=== PATIENT | male | born 1965 | race Caucasian/White ===

== ENCOUNTER 2025-04-05 16:01 | Outpatient (CLI) | payer BC ==
--- NOTE | 2025-04-05 17:27 | RADIOLOGY REPORT ---
CLINICAL INDICATION: ACUTE PAIN OF LEFT SHOULDER TECHNIQUE: DI SHOULDER, COMPLETE (MIN 2 VWS) Comparison: None FINDINGS/IMPRESSION: : Age indeterminate fractures of the left posterior 7th and 8th ribs. No shoulder fracture. No glenohumeral joint space dislocation.
== END 2025-04-05 23:59 | disposition home or self-care (01) ==
LOC: RAD 16:01
PROVIDERS: ATTEND Internal Medicine
DX: M80.0AXA Age-related osteoporosis with current pathological fracture, other site, initial encounter for fracture (principal); M25.512 Pain in left shoulder
CPT/HCPCS: 73030

== ENCOUNTER 2025-05-16 15:26 | Outpatient (CLI) | payer BC ==
--- NOTE | 2025-05-16 18:01 | RADIOLOGY REPORT ---
EXAM: CT CT LOWER EXTREMITY INDICATION: PRESENCE OF LEFT ARTIFICIAL KNEE JOINT TECHNIQUE: Axial images of left lower extremity have been obtained along with coronal and sagittal reformatted images. All CT scans at this facility use dose modulation, iterative reconstruction, and/or weight based dosing when appropriate to reduce radiation dose to as low as reasonably achievable. COMPARISON: None FINDINGS: BONES: No CT evidence of an acute fracture or aggressive osseous lesion. left total knee arthroplasty. No osseous lucency along the hardware bone interfaces. No perihardware fracture. MUSCLES: No abnormal attenuation. JOINT SPACES: No joint effusion. TENDONS/LIGAMENTS: Intact. OTHER: Vascular calcifications. IMPRESSION: 1. Right total knee arthroplasty without radiographic evidence of interval complication 2. Normal appearance of the polyethylene spacer. 3. Question significant internal rotation of the tibial component correlate with clinical patellar maltracking. 4. Small knee joint effusion possible synovitis.
== END 2025-05-16 23:59 | disposition home or self-care (01) ==
LOC: RAD 15:26
PROVIDERS: ATTEND Physician Assistant
DX: Z96.652 Presence of left artificial knee joint (principal)
CPT/HCPCS: 73700

== ENCOUNTER 2025-05-23 12:28 | Outpatient (CLI) | payer BC ==
[2025-05-23 12:58] LABS: MEAN PLATELET VOLUME 8.5 FL (7.4-10.4); RED CELL DISTRIBUTION WIDTH 13.8 % (11.5-14.5)
== END 2025-05-23 23:59 | disposition home or self-care (01) ==
LOC: RAD 12:28
PROVIDERS: ATTEND Orthopaedic Surgery
DX: Z01.812 Encounter for preprocedural laboratory examination (principal); Z96.652 Presence of left artificial knee joint
CPT/HCPCS: 36415; 85025; 85651; 86140

== ENCOUNTER 2025-07-04 11:01 | Outpatient (CLI) | payer BC ==
[2025-07-04 11:28] LABS: MEAN PLATELET VOLUME 8.0 FL (7.4-10.4); RED CELL DISTRIBUTION WIDTH 13.7 % (11.5-14.5)
[2025-07-04 11:43] LABS: CHOL/HDL RATIO 4.5 (0.00-4.99); CREATININE 0.94 MG/DL (0.60-1.10); LDL CHOLESTEROL 168 MG/DL (50-100); TOTAL CARBON DIOXIDE 30.0 MMOL/L (24-32); eGFR 81 ML/MIN
== END 2025-07-04 23:59 | disposition home or self-care (01) ==
LOC: RAD 11:01
PROVIDERS: ATTEND Orthopaedic Surgery
DX: Z01.812 Encounter for preprocedural laboratory examination (principal); Z96.652 Presence of left artificial knee joint; Z79.01 Long term (current) use of anticoagulants
CPT/HCPCS: 36415; 80053; 80061; 85025; 85651; 86140